=== PATIENT | female | born 1995 | race Caucasian/White ===

== ENCOUNTER → 2017-10-19 | Outpatient (CLI) | payer OTHER ==
--- NOTE | 2017-10-19 15:07 | Diagnostic Imaging Report ---
PROCEDURE:X-RAY ABDOMEN - KUB COMPARISON:None. INDICATIONS:KIDNEY STONES RIGHT SIDE PER PATIENT FINDINGS: There is a non-obstructed bowel-gas pattern. Several punctate mineralizations are seen overlying the bilateral upper abdomen, which more likely reflect rib calcifications, although small renal stones can have a similar appearance. There are no calcifications projected over the expected course of the ureters or bladder. There are no acute osseous abnormalities. Levoconvex curvature of the upper lumbar spine. The lung bases are clear. CONCLUSION: Mineralization projecting over bilateral upper abdomen, which could reflect rib calcifications. Punctate renal stones can have a similar appearance. No calcifications projecting over the expected locations of the ureters or bladder. RECOMMENDATION: A non-contrast renal stone CT would be more sensitive for further evaluation if clinically indicated for suspected right sided stone. Dictated by: AZEB TEAGUE M.D. on 10/19/2017 at 15:11 Electronically approved by: AZEB TEAGUE M.D. on 10/19/2017 at 15:11
== END ==
LOC: RAD 14:05
PROVIDERS: ATTEND Urology
DX: N20.0 Calculus of kidney (principal)
CPT/HCPCS: 74018; 81025